=== PATIENT | male | born 1955 | race Caucasian/White ===

== ENCOUNTER 2025-01-24 13:58 | Emergency (ER) | payer OTHER ==
[~2025-01-24] VITALS: Ht 172.7 cm; Wt 78.5 kg
[2025-01-24 14:30] LABS: BASOPHILS ABSOLUTE AUTO 0.06 K/mm3 (0.00-0.23); BASOPHILS PERCENT AUTO 1 % (0-2); EOSINOPHILS ABSOLUTE AUTO 0.38 K/mm3 (0.00-0.68); EOSINOPHILS PERCENT AUTO 5 % (0-6); Hematocrit 41.3 % (37.0-53.0); Hemoglobin 14.6 g/dL (13.5-17.5); IMMATURE GRAN ABSOLUTE AUTO 0.02 K/mm3 (0.00-0.10); IMMATURE GRAN PERCENT AUTO 0 % (0-1); LYMPHOCYTES ABSOLUTE AUTO 2.05 K/mm3 (0.84-5.20); LYMPHOCYTES PERCENT AUTO 27 % (21-46); MONOCYTES ABSOLUTE AUTO 0.52 K/mm3 (0.16-1.47); MONOCYTES PERCENT AUTO 7 % (4-13); Mean Corpuscular HGB Conc 35.4 g/dL (31.5-36.5); Mean Corpuscular Volume 84 fL (80-100); NEUTROPHILS ABSOLUTE AUTO 4.57 K/mm3 (1.96-9.15); NEUTROPHILS PERCENT AUTO 60 % (41-73); NRBC ABSOLUTE 0.00 K/mm3 (0.00-0.02); NRBC Auto 0.0 /100 WBC (0.0-0.2); Platelet Count 283 K/mm3 (150-400); RDW Coefficient Variation 13.4 % (11.7-14.2); RDW Standard Deviation 41.2 fL (35.1-46.3)
[2025-01-24] MEDS ORDERED: Ondansetron HCl 2 MG / ML 2ML Vial IV ONE (14:55)
[2025-01-24] MEDS ORDERED: PROCTOSOL-HC28.3510 EXT (15:08)
[2025-01-24 15:09] LABS: Alanine Aminotransfer (ALT/SGP 28.0 U/L (12-78); Albumin, Blood 3.9 g/dL (3.4-5.0); Albumin/Globulin Ratio 1.0 (0.8-1.8); Anion Gap 9.0 mmol/L (3-11); Aspartate Aminotrans (AST/SGOT 23.0 U/L (12-37); Bilirubin, Total 0.7 mg/dL (0.1-1.0); Blood Urea Nitrogen 15.0 mg/dL (8-24); CO2, Blood 24.0 mmol/L (21-32); Calcium, Blood 9.4 mg/dL (8.5-10.1); Chloride, Blood 106.0 mmol/L (98-108); Creatinine, Blood 1.21 mg/dL (0.60-1.20); Globulin, Blood 4.0 g/dL (2.2-4.0); Glucose, Blood 101.0 mg/dL (70-99); Potassium, Blood 3.9 mmol/L (3.5-5.5); Sodium, Blood 135.0 mmol/L (136-145); Total Protein, Blood 7.9 g/dL (6.4-8.2)
== END 2025-01-24 15:25 | disposition home or self-care (01) ==
LOC: ER 13:58
PROVIDERS: Physician Assistant
DX: K64.4 Residual hemorrhoidal skin tags (principal); I10 Essential (primary) hypertension; E78.5 Hyperlipidemia, unspecified; Z91.041 Radiographic dye allergy status; Z59.89 Other problems related to housing and economic circumstances
CPT/HCPCS: 80053; 85025; 96374; 99282-25; J2405

== ENCOUNTER 2025-03-20 12:49 | Inpatient (IN) | payer OTHER ==
[~2025-03-20] VITALS: Ht 172.7 cm; Wt 83.0 kg
[~2025-03-20 12:49] MED LIST: PROCTOSOL-HC28.3510 EXT
[2025-03-20] MEDS ORDERED: Metoclopramide HCl 5MG / ML 2ML Vial IV ONE (13:45)
[2025-03-20 14:42] LABS: Alanine Aminotransfer (ALT/SGP 26.0 U/L (12-78); Albumin, Blood 3.6 g/dL (3.4-5.0); Albumin/Globulin Ratio 1.0 (0.8-1.8); Anion Gap 7.0 mmol/L (3-11); Aspartate Aminotrans (AST/SGOT 16.0 U/L (12-37); Bilirubin, Total 0.5 mg/dL (0.1-1.0); Blood Urea Nitrogen 11.0 mg/dL (8-24); CO2, Blood 29.0 mmol/L (21-32); Calcium, Blood 9.3 mg/dL (8.5-10.1); Chloride, Blood 105.0 mmol/L (98-108); Creatinine, Blood 1.19 mg/dL (0.60-1.20); Globulin, Blood 3.6 g/dL (2.2-4.0); Glucose, Blood 92.0 mg/dL (70-99); Potassium, Blood 3.8 mmol/L (3.5-5.5); Sodium, Blood 137.0 mmol/L (136-145); Total Protein, Blood 7.2 g/dL (6.4-8.2)
[2025-03-20] MEDS ORDERED: FLU VACC TS2025(65UP)/MF59C/PF 45 MCG/0.5 ML SYRINGE IM SCH (15:00)
[2025-03-20 16:10] VITALS: BP 140/90
--- NOTE | 2025-03-20 16:28 | NUR ---
PT ARRIVED TO ROOM 362 VIA W/C FROM ED. ABLE TO TRANSFER HIMSELF EASILY FROM W/C TO BED. PRESENT WITH PT. ABLE TO TAKE HIMSELF TO THE BATHROOM AND CHANGE INTO HOSPITAL PANTS. RECEIVED CALL FROM MRI STATING THEY NEEDED THE MAKE AND MODEL OF PTS STENTS PRIOR TO MRI BEING COMPLETED. DISCUSSED WITH PT NEED FOR THIS INFORMATION. PT STATES IT WAS DONE IN [place] AT A [facility] IN 1998 AND HE DIDN'T RECEIVE ANY CARDS WITH INFORMATION ABOUT THE STENTS. [employer] SALES REPRESENTATIVE REPORTED THE HOSPITAL IT WAS DONE IN NEEDS TO BE CALLED TO OBTAIN THE INFORMATION. NOTIFIED PRIMARY RN ON RETURN FROM BREAK.
[2025-03-20] MEDS ORDERED: LOSA25 PO (16:37)
[2025-03-20] MEDS ORDERED: VERAPAMIL HCL PO (16:38)
[2025-03-20] MEDS ORDERED: TRAM50 PO (16:39)
[2025-03-20] MEDS ORDERED: SINEMET 25-1001 EAC1 PO (16:40)
[2025-03-20] MEDS ORDERED: BISA5EC PO (16:41)
--- NOTE | 2025-03-20 17:53 | NUR ---
PATIENT RESTING IN BED WITH NO COMPLAINTS AT THIS TIME. PATIENT ORIENTED TO ROOM AND CALL LIGHT USE AND AGREES TO CALL WITH ANY CONCERNS. PATIENT IS INDEPENDENT.
[2025-03-20 19:52] VITALS: BP 124/96
[2025-03-21 00:10] VITALS: BP 123/92
[2025-03-21 03:46] VITALS: BP 130/102
--- NOTE | 2025-03-21 04:51 | NUR ---
SHIFT SUMMARY NOC PT A/O X 4. PLEASANT AND COOPERATIVE WITH CARE. VSS. NO ACUTE CHANGES TO REPORT. PT ON TELE SINUS RHYTHM IN 60'S WITH NO EVENTS REPORTED. PT HAS ECHO SCHEDULED FOR TODAY WELL HEAD/NECK MRI PENDING INFORMATION ON UROLOGY STENTS. PT CURRENTLY RESTING WITH SPOUSE BEDSIDE, BED IN LOWEST POSITION, AND CALL LIGHT WITHIN REACH.
[2025-03-21 05:17] LABS: BASOPHILS ABSOLUTE AUTO 0.08 K/mm3 (0.00-0.23); BASOPHILS PERCENT AUTO 1 % (0-2); EOSINOPHILS ABSOLUTE AUTO 0.44 K/mm3 (0.00-0.68); EOSINOPHILS PERCENT AUTO 6 % (0-6); Hematocrit 40.4 % (37.0-53.0); Hemoglobin 14.1 g/dL (13.5-17.5); IMMATURE GRAN ABSOLUTE AUTO 0.04 K/mm3 (0.00-0.10); IMMATURE GRAN PERCENT AUTO 1 % (0-1); LYMPHOCYTES ABSOLUTE AUTO 1.66 K/mm3 (0.84-5.20); LYMPHOCYTES PERCENT AUTO 22 % (21-46); MONOCYTES ABSOLUTE AUTO 0.64 K/mm3 (0.16-1.47); MONOCYTES PERCENT AUTO 8 % (4-13); Mean Corpuscular HGB Conc 34.9 g/dL (31.5-36.5); Mean Corpuscular Volume 85 fL (80-100); NEUTROPHILS ABSOLUTE AUTO 4.72 K/mm3 (1.96-9.15); NEUTROPHILS PERCENT AUTO 62 % (41-73); NRBC ABSOLUTE 0.00 K/mm3 (0.00-0.02); NRBC Auto 0.0 /100 WBC (0.0-0.2); Platelet Count 271 K/mm3 (150-400); RDW Coefficient Variation 13.4 % (11.7-14.2); RDW Standard Deviation 41.1 fL (35.1-46.3)
[2025-03-21 05:48] LABS: Alanine Aminotransfer (ALT/SGP 24.0 U/L (12-78); Albumin, Blood 3.5 g/dL (3.4-5.0); Albumin/Globulin Ratio 1.0 (0.8-1.8); Anion Gap 9.0 mmol/L (3-11); Aspartate Aminotrans (AST/SGOT 17.0 U/L (12-37); Bilirubin, Total 0.7 mg/dL (0.1-1.0); Blood Urea Nitrogen 13.0 mg/dL (8-24); CO2, Blood 26.0 mmol/L (21-32); Calcium, Blood 9.4 mg/dL (8.5-10.1); Chloride, Blood 105.0 mmol/L (98-108); Creatinine, Blood 1.13 mg/dL (0.60-1.20); Globulin, Blood 3.5 g/dL (2.2-4.0); Glucose, Blood 88.0 mg/dL (70-99); Potassium, Blood 3.8 mmol/L (3.5-5.5); Sodium, Blood 136.0 mmol/L (136-145); Total Protein, Blood 7.0 g/dL (6.4-8.2)
[2025-03-21 07:28] VITALS: BP 130/93
[2025-03-21] MEDS ORDERED: Enoxaparin 40 MG/0.4 ML SYR SC SCH (09:00)
[2025-03-21 11:36] VITALS: BP 146/84
[2025-03-21 16:20] VITALS: BP 135/102
--- NOTE | 2025-03-21 17:53 | NUR ---
PATIENT INDEPENDENT TO ROOM, USES CALL LIGHT NEEDED. FAX SENT TO FACILITY THAT DID PATIENTS STENTS REQUESTING INFORMATION FOR MRI. FAX SENT AT 1042 THIS AM WITH CONFIRMATION THAT FAX WENT THRU. PATIENT RECEIVED CALL STATING FAX WAS SENT BUT DEPARTMENT NEVER GOT THE INCOMING FAX. CALL LIGHT WITHIN REACH.
[2025-03-21 20:29] VITALS: BP 165/110
[2025-03-22 00:29] VITALS: BP 149/101
[2025-03-22 04:42] VITALS: BP 114/95
--- NOTE | 2025-03-22 05:21 | NUR ---
PT EXPERIENCING HEADACHES THROUGHOUT THE NIGHT, TRAMADOL AND TYLENOL ORDERED TO HELP PT HAS A HISTORY OF MIGRAINES. MEDICATED 2X PER JUN. AWAITING STENT INFORMATION FROM FLOORPERSON PRIOR TO MRI. PT CURRENTLY RESTING COMFORTABLY. ICE PACK APPLIED, PT USES CALL LIGHT NEEDED.
[2025-03-22 07:37] VITALS: BP 143/98
[2025-03-22 11:32] VITALS: BP 127/95
--- NOTE | 2025-03-22 11:50 | NUR ---
DR. BLANKENSHIP NOTIFIED OF REFUSED LOVENOX
[2025-03-22] MEDS ORDERED: HYDROCORTISONE30 GM TOP (13:08)
[2025-03-22] MEDS ORDERED: IMITREX50 MG PO (13:11)
[2025-03-22] MEDS ORDERED: ZYRTEC10 M2 PO (13:11)
[2025-03-22] MEDS ORDERED: Atarax10 MG PO (13:12)
[2025-03-22] MEDS ORDERED: Methocarbamol500 MG PO (13:13)
[2025-03-22] MEDS ORDERED: DiphenhydrAMINE HCl 50 MG/ML 1ML Vial IV PRN ×2 (13:20→14:05)
[2025-03-22 15:35] VITALS: BP 156/97
--- NOTE | 2025-03-22 16:04 | NUR ---
SHIFT SUMMARY: PATIENT IS A&OX4/INDEPENDENT. UNFORTUNATELY, WE HAVE BEEN UNSUCCESSFUL IN GETTING THE RECORDS FROM THE THE [facility] ON HIS STENT HE PLACED IN 1997 TO CLEAR FOR HEAD/NECK MRI/MRA. CT/CTA COMPLETED TODAY; PENDING RESULTS. PATIENT'S [facility] SCORE REMAINS A 1; UNCHANGED FROM THE ER. HE IS IN HIS BED, RESTING, ALERT, NO SIGNS OR SYMPTOMS OF DISTRESS, CALL LIGHT WITHIN REACH, NO SIGNS OR SYMPTOMS OF DISTRESS, PLAN OF CARE ONGOING.
[2025-03-22 19:46] VITALS: BP 126/98
[2025-03-23 00:44] VITALS: BP 108/84
--- NOTE | 2025-03-23 04:17 | NUR ---
NO UPDATES, PT SLEPT THROUGH THE NIGHT, NO COMPLAINTS/NO HEADACHES. AT BEDSIDE AND PLEASANT. CALL LIGHT IN REACH BED IN LOW POSITION.
[2025-03-23 05:12] VITALS: BP 102/78
--- NOTE | 2025-03-23 06:26 | NUR ---
UPDATE PT REPORTS 1 INSTANCE OF HEADACHE RATED 5/10 NOT INTENSE PREVIOUS. TREATED PER JUN. ATTEMPTED TO SPEAK TO [facility] [place] TO OBTAIN STENT INFORMATION, SPOKE WITH [facility], WE HAVE NOT RECEIVED THE FAX FROM THEM, WAS TOLD THEY HAD ATTEMPTED TO FAX TO THE PROVIDER DIRECTLY AND TO CALL BACK WHEN WE HAVE CONFIRMATION OF IT ARRIVING OR NOT TO THE PROVIDER'S OFFICE.
[2025-03-23 07:04] VITALS: BP 133/80
[2025-03-23 11:21] VITALS: BP 111/79
[2025-03-23] MEDS ORDERED: ATOR80 PO (13:32)
[2025-03-23] MEDS ORDERED: ASPI81CH PO (13:32)
[2025-03-23] MEDS ORDERED: CLOP75 PO (13:33)
[2025-03-23 15:38] VITALS: BP 128/84
--- NOTE | 2025-03-23 17:12 | NUR ---
MRI RESULTS CAME BACK. CALLED AND NOTIFIED DR. BLANKENSHIP. PER DR. BLANKENSHIP OKAY FOR PATIENT TO DISCHARGE, NORMAL RESULTS. PLAN OF CARE THE SAME "MAY HAVE BEEN A TIA." PATIENT NOTIFIED. WENT OVER DISCHARGE WITH PT, HIS ALREADY PICKED UP MEDS, IV AND TELE REMOVED.
== END 2025-03-23 17:22 | disposition home or self-care (01) | DRG 69 ==
LOC: ER 12:49 → MEDS 14:55
PROVIDERS: Student in an Organized Health Care Education/Training Program; ADMIT Family Medicine
DX: G45.9 Transient cerebral ischemic attack, unspecified (principal); I10 Essential (primary) hypertension; G43.909 Migraine, unspecified, not intractable, without status migrainosus; Z91.041 Radiographic dye allergy status
CPT/HCPCS: 36415; 70496; 70498; 70551; 80053; 85025; 92610; 93005; 93010; 93306; 96374; 97116; 97161; 97165; 99285-25; A9270; J1200; J2765; J2919; Q9967